=== PATIENT | male | born 1990 | race Caucasian/White ===

== ENCOUNTER 2016-06-29 23:57 | Emergency (ER) | payer BC, OTHER ==
[2016-06-30] MEDS ORDERED: MUCOUS RELIEF (00:09)
[2016-06-30] MEDS ORDERED: amox (00:11)
[2016-06-30] MEDS ORDERED: sleep aid PO (00:12)
== END 2016-06-30 01:49 | disposition left against medical advice (07) ==
LOC: M ED 06-30 00:33
DX: J00 Acute nasopharyngitis [common cold] (principal); Z53.21 Procedure and treatment not carried out due to patient leaving prior to being seen by health care provider

== ENCOUNTER 2018-12-09 13:16 | Emergency (ER) | payer BC, OTHER ==
[~2018-12-09] VITALS: Ht 175.3 cm; Wt 81.8 kg
[~2018-12-09 13:16] MED LIST: MUCOUS RELIEF; amox; sleep aid PO
[2018-12-09] MEDS ORDERED: XANA0.5T PO (13:27)
[2018-12-09 17:22] VITALS: BP 119/61
--- NOTE | 2018-12-09 17:38 | REPVR ---
EXAM: US Pelvis Limited, Male EXAM DATE/TIME: 12/09/2018 5:22 PM CLINICAL HISTORY: 28 years old, male; Injury or trauma; Injury history: Was having sex and slipped into 's side of vagina per patient; Initial encounter; Swelling; Does not apply; Pelvic region; Additional info: Penile swelling, pain, RO fracture TECHNIQUE: Imaging protocol: Real-time pelvic ultrasound with image documentation. COMPARISON: No relevant prior studies available. FINDINGS: Free fluid: There is some bruising along the surface of the midportion of the penis. The corpus cavernosa and corpus spongiosum appear intact. No obvious fluid within the structures of the corpora. IMPRESSION: Mild superficial swelling with no evidence of fracture of the corpus cavernosa, and spongiosum. Electronically signed by: Alhaji Bragg On 12/09/2018 17:37:33 PM
[2018-12-09] MEDS ORDERED: ACETAMINOPHEN 500 MG TAB PO ONE (18:00)
== END 2018-12-09 18:45 | disposition home or self-care (01) ==
LOC: M ED 13:16
DX: S30.21XA Contusion of penis, initial encounter (principal); X58.XXXA Exposure to other specified factors, initial encounter; Y92.89 Other specified places as the place of occurrence of the external cause; Y93.89 Activity, other specified; Y99.8 Other external cause status; F41.9 Anxiety disorder, unspecified; F17.220 Nicotine dependence, chewing tobacco, uncomplicated; Z88.2 Allergy status to sulfonamides

== ENCOUNTER 2019-11-11 18:52 | Emergency (ER) | payer BC, OTHER ==
[~2019-11-11 18:52] MED LIST changes: +XANA0.5T PO
== END 2019-11-11 20:24 | disposition home or self-care (01) ==
LOC: M ED 18:52
DX: M54.2 Cervicalgia (principal); M62.838 Other muscle spasm; F41.9 Anxiety disorder, unspecified; F17.210 Nicotine dependence, cigarettes, uncomplicated; Z88.1 Allergy status to other antibiotic agents

== ENCOUNTER → 2020-11-20 | Outpatient (CLI) | payer BC, OTHER ==
--- NOTE | 2020-11-20 21:31 | REP ---
INDICATION: M79.631 PAIN IN RIGHT FOREARM COMPARISON: None. TECHNIQUE: AP and lateral right forearm. FINDINGS: The osseous structures and joint spaces are intact and normal. There is no evidence for acute or healed fracture or dislocation. Surrounding soft tissues are unremarkable. No obvious mass lesion identified. No subcutaneous emphysema or radiodense foreign body. IMPRESSION: Normal right forearm radiographs.. No obvious mass lesion identified by radiographic evaluation. Consider directed ultrasound examination if necessary. <Electronically signed by Bobo Hood > 11/20/20 0910
== END ==
LOC: M WUC 12:02
PROVIDERS: ATTEND Physician Assistant
DX: M79.631 Pain in right forearm (principal)

== ENCOUNTER 2021-05-12 11:23 | Emergency (ER) | payer BC, OTHER ==
[~2021-05-12] VITALS: Ht 175.3 cm; Wt 91.8 kg
[2021-05-12] MEDS ORDERED: ACET-683 PO (11:45)
[2021-05-12] MEDS ORDERED: METAL LOCK LOOP XX ONE (12:28)
[2021-05-12 13:24] VITALS: BP 138/83
== END 2021-05-12 13:26 | disposition home or self-care (01) ==
LOC: M ED 11:23
DX: S09.90XA Unspecified injury of head, initial encounter (principal); W01.0XXA Fall on same level from slipping, tripping and stumbling without subsequent striking against object, initial encounter; Y92.9 Unspecified place or not applicable; Y93.9 Activity, unspecified; Y99.0 Civilian activity done for income or pay; Z88.2 Allergy status to sulfonamides; Z88.8 Allergy status to other drugs, medicaments and biological substances